=== PATIENT | female | born 1955 | race Caucasian/White ===

== ENCOUNTER 2017-06-22 05:35 | Day surgery (SDC) | payer OTHER ==
[~2017-06-22 05:35] MED LIST: ALENDRONATE SOD70 MG; INTEGRA F CAPS1 EACH; INTESTINEX680 MG PO; MAXIMUM D310000 UNIT; POLY119PG PO; SIMVASTATIN20 MG; SURFAK240 M1 PO; ULTRACET PO; VITAMIN B-121000 MCG; ZANTAC150 MG PO
== END 2017-06-22 14:40 | disposition home or self-care (01) ==
LOC: CIR.AMB 05:35
DX: C50.911 Malignant neoplasm of unspecified site of right female breast (principal)

== ENCOUNTER 2018-10-11 13:09 | Outpatient (CLI) | payer OTHER | END 2018-10-11 15:52 | disposition home or self-care (01) | LOC: LAB 13:09 | DX: C50.211 Malignant neoplasm of upper-inner quadrant of right female breast (principal); Z79.811 Long term (current) use of aromatase inhibitors; D51.3 Other dietary vitamin B12 deficiency anemia; E78.49 Other hyperlipidemia; E55.9 Vitamin D deficiency, unspecified; Z85.3 Personal history of malignant neoplasm of breast; Z82.62 Family history of osteoporosis; K80.10 Calculus of gallbladder with chronic cholecystitis without obstruction; K86.2 Cyst of pancreas; D69.49 Other primary thrombocytopenia ==